=== PATIENT | female | born 1960 | race Caucasian/White ===

== ENCOUNTER 2021-04-03 18:00 | Inpatient (IN) | payer OTHER ==
[~2021-04-03] VITALS: Ht 167.6 cm; Wt 108.0 kg
[2021-04-03] MEDS ORDERED: SODIUM CHLORIDE 0.9% 1,000 ML IVB ONE (18:30)
[2021-04-03] MEDS ORDERED: ONDANSETRON HCL 4 MG/2 ML VIAL IV ONE (18:30)
[2021-04-03] MEDS ORDERED: MORPHINE SULFATE 4 MG/ML SYR/VIAL IV ONE (18:30)
[2021-04-03] MEDS ORDERED: KETOROLAC TROMETH 60MG/2ML VIAL IM ONE (18:30)
[2021-04-03 19:08] LABS: Basophils # (auto) 0 10 ^3/uL (0-0.2); Basophils % (auto) 0.5 % (0.0-2.0); Eosinophils # (auto) 0.2 10 ^3/uL (0-0.8); Eosinophils % (auto) 2.5 % (0.0-7.0); Hematocrit 40.5 % (36.0-46.0); Lymphocytes # (auto) 1.9 10 ^3/uL (0.4-5.4); Lymphocytes % (auto) 27.8 % (10.0-50.0); Mean Corpuscular Hgb Conc. 34.7 g/dL (32.0-36.0); Mean Corpuscular Volume 89.4 fL (80.0-100.0); Monocytes # (auto) 0.4 10 ^3/uL (0-1.3); Monocytes % (auto) 5.3 % (0.0-12.0); Neutrophils # (auto) 4.3 10 ^3/uL (1.6-8.6); Neutrophils % (auto) 63.9 % (37.0-80.0); Nucleated Red Blood Cells % 0.2 %; Platelet Count (auto) 303 10^3/uL (140-450); Red Blood Cells 4.53 10^6/uL (4.0-5.20); Red Cell Distribution Width 13.8 % (11.8-14.3); White Blood Cell 6.7 10^3/uL (4.4-10.8)
[2021-04-03 19:15] LABS: Urine Bacteria NONE SEEN /hpf (None Seen); Urine Blood 3+ /uL (Negative); Urine Mucus FEW (None Seen); Urine Specific Gravity 1.018 (1.001-1.035); Urine WBC 34 /hpf (0 - 5)
[2021-04-03 19:26] LABS: Potassium 4.4 mmol/L (3.5-5.1)
[2021-04-03 19:32] LABS: Albumin 3.7 g/dL (3.4-5.0); BUN/Creatinine Ratio 21.1; Bilirubin, Total 0.5 mg/dL (0.2-1.0); Total Protein 7.1 g/dL (6.4-8.2)
[2021-04-03] MEDS ORDERED: DEXTROSE (50%) 50ML SYRG IV PRN (21:00)
[2021-04-03] MEDS ORDERED: TEMAZEPAM 15 MG CAP PO PRN (21:00)
[2021-04-03] MEDS ORDERED: ONDANSETRON HCL 4 MG/2 ML VIAL IV PRN (21:00)
[2021-04-03] MEDS ORDERED: cefTRIAXone 1GM/50ML D5W 50 ML IV ONE (21:00)
[2021-04-03] MEDS ORDERED: MORPHINE SULF INJ 2 MG/ML SYRINGE 1ML IV PRN (21:00)
[2021-04-03] MEDS ORDERED: ACETAMINOPHEN 325 MG TAB PO PRN (21:00)
[2021-04-03] MEDS ORDERED: HYDROcodone-ACET 5/325MG TAB PO PRN (21:00)
[2021-04-03] MEDS: InsuLIN REG 1unit/0.01ml Soln (100units/ml) SC SCH (21:56)
[2021-04-03] MEDS: ACCU-CHEK COMFORT CURVE STRIP VI SCH (21:56)
[2021-04-03] MEDS: FAMOTIDINE 20 MG TAB PO SCH (22:01)
[2021-04-04 01:16] VITALS: BP 121/73
[2021-04-04] MEDS ORDERED: ASPI1TAB19 PO (01:42)
[2021-04-04] MEDS ORDERED: LEV100T PO (01:42)
[2021-04-04] MEDS ORDERED: PRAV20TA3 PO (01:42)
[2021-04-04] MEDS ORDERED: METF-370 PO (01:42)
[2021-04-04] MEDS ORDERED: PIO30T PO (01:42)
[2021-04-04 05:00] VITALS: BP 110/65
[2021-04-04] MEDS: InsuLIN REG 1unit/0.01ml Soln (100units/ml) SC SCH ×3 (06:07→16:46)
[2021-04-04] MEDS: ACCU-CHEK COMFORT CURVE STRIP VI SCH ×3 (06:08→16:46)
[2021-04-04 06:20] LABS: Basophils # (auto) 0 10 ^3/uL (0-0.2); Basophils % (auto) 0.4 % (0.0-2.0); Eosinophils # (auto) 0.1 10 ^3/uL (0-0.8); Eosinophils % (auto) 2.5 % (0.0-7.0); Hematocrit 38.7 % (36.0-46.0); Lymphocytes % (auto) 32.9 % (10.0-50.0); Mean Corpuscular Hemoglobin 30.2 pg (28.0-32.0); Mean Corpuscular Hgb Conc. 33.6 g/dL (32.0-36.0); Monocytes # (auto) 0.4 10 ^3/uL (0-1.3); Monocytes % (auto) 6.5 % (0.0-12.0); Neutrophils # (auto) 3.4 10 ^3/uL (1.6-8.6); Neutrophils % (auto) 57.7 % (37.0-80.0); Platelet Count (auto) 286 10^3/uL (140-450); Red Cell Distribution Width 13.7 % (11.8-14.3); White Blood Cell 5.9 10^3/uL (4.4-10.8)
[2021-04-04 06:38] LABS: BUN/Creatinine Ratio 22.4; Calcium 8.7 mg/dL (8.5-10.1); Potassium 3.9 mmol/L (3.5-5.1)
[2021-04-04] MEDS ORDERED: LEVOTHYROXINE SODIUM 100 MCG TAB PO SCH (07:00)
[2021-04-04 09:00] VITALS: BP 108/62
[2021-04-04] MEDS ORDERED: PNEUMOCOCCAL VACC POLYS 25 MCG/0.5 ML VIAL IM ONE (09:00)
[2021-04-04] MEDS ORDERED: cefTRIAXone 1GM/50ML D5W 50 ML IV SCH (09:00)
[2021-04-04] MEDS: FAMOTIDINE 20 MG TAB PO SCH (09:36)
[2021-04-04 13:00] VITALS: BP 107/65
[2021-04-04] MEDS ORDERED: TAMSULOSIN HYDROCHLORIDE 0.4 MG CAP PO ONE (15:00)
[2021-04-04] MEDS ORDERED: SODIUM CHLORIDE 0.9% 1,000 ML IV SCH (15:00)
[2021-04-04] MEDS ORDERED: MANNITOL FTV 25% 12.5 GM/50 ML 50 ML IV ONE (15:00)
[2021-04-04] MEDS ORDERED: HYDR1TAB97 PO (15:11)
[2021-04-04] MEDS ORDERED: TAM04C PO (15:11)
[2021-04-04] MEDS ORDERED: LEVO500T31 PO (15:11)
[2021-04-04] MEDS ORDERED: IBUP400T23 PO (15:11)
[2021-04-04 17:00] VITALS: BP 120/69
[2021-04-04] MEDS ORDERED: TAMSULOSIN HYDROCHLORIDE 0.4 MG CAP PO SCH (18:00)
== END 2021-04-04 19:04 | disposition home or self-care (01) | DRG 690 ==
LOC: ER 18:03 → OVERFLOW 21:26 → EAST 23:34
PROVIDERS: ADMIT Nurse Practitioner; ATTEND Internal Medicine
DX: N13.6 Pyonephrosis (principal); E66.9 Obesity, unspecified; Z20.822 Contact with and (suspected) exposure to COVID-19; R31.9 Hematuria, unspecified; E11.9 Type 2 diabetes mellitus without complications; E03.9 Hypothyroidism, unspecified; Z68.38 Body mass index [BMI] 38.0-38.9, adult; Z90.49 Acquired absence of other specified parts of digestive tract; Z85.810 Personal history of malignant neoplasm of tongue; Z79.899 Other long term (current) drug therapy; Z79.82 Long term (current) use of aspirin; Z79.84 Long term (current) use of oral hypoglycemic drugs; Z82.49 Family history of ischemic heart disease and other diseases of the circulatory system; Z80.0 Family history of malignant neoplasm of digestive organs; Z80.8 Family history of malignant neoplasm of other organs or systems
CPT/HCPCS: 36415; 74176; 80048; 80053; 81001; 82360; 82962; 85025; 87426; 96365; 96372; G0378; J0696; J1815; J1885

== ENCOUNTER 2025-02-19 13:34 | Inpatient (IN) | payer OTHER ==
[~2025-02-19] VITALS: Ht 167.6 cm; Wt 99.0 kg
[~2025-02-19 13:34] MED LIST: ASPI1TAB19 PO; HYDR1TAB97 PO; IBUP1TAB4 PO; LEVO-849 PO; LEVO500T31 PO; METF-370 PO; PIO30T PO; PRAV20TA3 PO; TAMS-35 PO
[2025-02-19 14:11] LABS: Basophils # (auto) 0 10 ^3/uL (0-0.2); Basophils % (auto) 0.6 % (0.0-2.0); Eosinophils # (auto) 0.1 10 ^3/uL (0-0.8); Eosinophils % (auto) 1.8 % (0.0-7.0); Hematocrit 45.1 % (36.0-46.0); Hemoglobin 15.3 g/dL (12.2-16.2); Lymphocytes # (auto) 2.2 10 ^3/uL (0.4-5.4); Lymphocytes % (auto) 28.5 % (10.0-50.0); Mean Corpuscular Hemoglobin 28.9 pg (28.0-32.0); Mean Corpuscular Hgb Conc. 33.8 g/dL (32.0-36.0); Mean Corpuscular Volume 85.5 fL (80.0-100.0); Monocytes # (auto) 0.4 10 ^3/uL (0-1.3); Monocytes % (auto) 5.5 % (0.0-12.0); Neutrophils % (auto) 63.6 % (37.0-80.0); Nucleated Red Blood Cells % 0.1 %; Platelet Count (auto) 351 10^3/uL (140-450); Red Blood Cells 5.28 10^6/uL (4.0-5.20); Red Cell Distribution Width 13.9 % (11.8-14.3); White Blood Cell 7.9 10^3/uL (4.4-10.8)
--- NOTE | 2025-02-19 14:11 | ED.PDOC ---
General HPI Comments Vitals: temperature of 98.3F, respiratory rate of 18, SpO2 of 99%RA, pulse rate of 95, blood pressure of 144/91 Past medical history: kidney stones, DM, tongue cancer, hypothyroidism, HLD Past surgical history: tongue cancer removal procedure, cholecystectomy HPI: Poor Historian. 65-year-old female presents to emergency department for evaluation of left flank pain that started at 12:30 p.m. this afternoon. Patient has history of kidney stones. She passed a small stone she says two days ago. Patient states that her pain is very similar to her previous attacks of kidney stones. Patient has associated nausea and vomiting nonbilious nonbloody. Patient appears to be in moderate distress secondary to pain. REVIEW OF SYSTEMS: CONSTITUTIONAL: Denies acute: fever, diaphoresis, chills, HEAD: Denies acute: headache, photophobia Eyes: Denies acute: Double vision, vision loss, eye pain, eye discharge. EARS: Denies acute: tinnitus, hearing loss, ear discharge, ear pain, THROAT: Denies acute: sore throat, swelling, difficulty swallowing , pain with swallowing, change in voice. NECK: Denies acute: neck pain, neck swelling, stiff neck. HEART: Denies acute : chest pain, palpitations, LUNGS: Denies acute: SOB, wheezing, cough, hemoptysis ABDOMEN: Denies acute: abdominal pain, , diarrhea, melena , hematemesis, hematochezia SKIN: Denies acute: rash, redness, lesions, itchiness. EXTREMITIES: Denies acute: calf pain, numbness, tingling, weakness, denies pain in extremity. Denies acute: Low back pain. Neuro: Denies acute: focal neurological deficit, motor or sensory focal neurological deficit, tremors, seizure like activity, confusion, dizziness, change in mental status, loss of bowel or bladder function, cauda equina like symptoms. : Denies acute: dysuria, hematuria, increase in urinary frequency. PSYCH: Denies acute: hallucination, suicidal ideation, homicidal ideation. FEMALE: Denies acute: abnormal vaginal bleeding, foul odor, unusual discharge. PHYSICAL EXAM: General: ---[id number]-----acute distress, awake and alert. Head: normocephalic, atraumatic. Neck: supple, trachea is midline, no swelling. Throat: Normal phonation. Eyes:, no erythema, no purulent discharge, no proptosis, no icterus. Heart: regular rate, regular rhythm, no significant murmur appreciated. Lungs: no apparent respiratory distress, Able to speak in full sentences. No wheezing, no rhonchi, no crackles. No stridors Clear to auscultation bilaterally. Abdomen: non tender to palpation, non distended, soft, no guarding, no rebound, + bowel sounds. Neuro: Awake, Alert, oriented to name, self, situation, follows commands GCS=15. Speech is normal. Skin: no petechia, no purpura, no cyanosis, non-pale, not jaundice. Lower extremities: --to raise bilateral - Pitting edema no deformity, no focal swelling, no calf TTP. Makes eye contact. moves all four extremities. Face: no apparent facial droop. Left CVA tenderness to percussion. Ambulating in the ED independently. ED COURSE: Chief Complaint: Flank Pain Time Seen by MD: 14:00 Reviewed notes: Nurses Notes Allergies: Coded Allergies: NO KNOWN ALLERGIES (Unverified , 04/03/21) Home Meds Active Scripts Hydrocodone-Acetaminophen (Hydrocodone/Acetaminophen 5-325 mg) 1 Tab Tab, 1 TAB PO Q6HP PRN MDD pain 7-10, #20 TAB Prov:JERI TAYLOR MD 04/04/21 Ibuprofen Micronized (Ibuprofen) 400 Mg Tab, 400 MG PO Q6HP PRN MDD pain 1-6, #20 MG Prov:JERI TAYLOR MD 04/04/21 Tamsulosin Hcl (Flomax) 0.4 Mg Cap, 0.4 MG PO DAILY, #7 MG Prov:JERI TAYLOR MD 04/04/21 Levofloxacin (Levaquin) 500 Mg Tab, 500 MG PO DAILY, #7 MG Prov:JERI TAYLOR MD 04/04/21 Reported Medications Pravastatin Sodium (PRAVACHOL TABLET) 20 Mg Tb, 10 MG PO HS, #30 TAB 5 Refills 04/04/21 Aspirin (Aspirin) 81 Mg Tab, 81 MG PO DAILY, TAB 04/04/21 Pioglitazone Hydrochloride (ACTOS TABLET) 30 Mg Tb, 1 TAB PO DAILY, #30 TAB 5 Refills 04/04/21 Levothyroxine Sodium (SYNTHROID TABLET) 100 Mcg Tb, 1 TAB PO DAILY, #30 TAB 5 Refills 04/04/21 Metformin Hydrochloride (Metformin Hcl) 500 Mg Tab, 1000 MG PO BID for 30 Days, MG 04/04/21 Information Source: Patient Past Medical History PAST MEDICAL HISTORY: Cancer, DM, Kidney Stones, Thyroid Surgical History: Cholecystectomy 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 Was a procedure done?: No Differential Diagnosis Kidney stone (Female): Other (Flank Pain;DDX include Nephrolethiasis, obstructive uropathy, kidney cancer, renal infarct, intraabdominal neoplasm, lower lobe pneumonia, retroperitoneal hemorrhage, pancreatitis, aneurysm, dissection, musculoskeletal, rib contusion/trauma, hematoma, PYLONEPHRITIS, muscle strain, spinal disease. IN A FEMALE) X-Ray, Labs, Meds, VS Vital Signs Date Time Temp Pulse Resp B/P (MAP) Pulse Ox O2 Delivery O2 Flow Rate FiO2 02/19/25 15:58 154/84 02/19/25 15:27 74 20 96 Room Air* 0 21 02/19/25 15:24 81 18 97 Room Air 02/19/25 15:24 97.4 81 18 154/84 (107) 97 97.4 02/19/25 13:42 98.3 95 18 144/91 (108) 99 98.3 Lab Test 02/19/25 13:54 02/19/25 13:53 Range/Units White Blood Count 7.9 4.4-10.8 10^3/uL Red Blood Count 5.28 H 4.0-5.20 10^6/uL Hemoglobin 15.3 12.2-16.2 g/dL Hematocrit 45.1 36.0-46.0 % Mean Corpuscular Volume 85.5 80.0-100.0 fL Mean Corpuscular Hemoglobin 28.9 28.0-32.0 pg Mean Corpuscular Hemoglobin Concent 33.8 32.0-36.0 g/dL Red Cell Distribution Width 13.9 11.8-14.3 % Platelet Count 351 140-450 10^3/uL Mean Platelet Volume 8.3 6.9-10.8 fL Neutrophils (%) (Auto) 63.6 37.0-80.0 % Lymphocytes (%) (Auto) 28.5 10.0-50.0 % Monocytes (%) (Auto) 5.5 0.0-12.0 % Eosinophils (%) (Auto) 1.8 0.0-7.0 % Basophils (%) (Auto) 0.6 0.0-2.0 % Neutrophils # (Auto) 5.0 1.6-8.6 10 ^3/uL Lymphocytes # (Auto) 2.2 0.4-5.4 10 ^3/uL Monocytes # (Auto) 0.4 0-1.3 10 ^3/uL Eosinophils # (Auto) 0.1 0-0.8 10 ^3/uL Basophils # (Auto) 0 0-0.2 10 ^3/uL Nucleated Red Blood Cells 0.1 % Sodium Level 141 136-145 mmol/L Potassium Level 4.2 3.5-5.1 mmol/L Chloride Level 104 98-107 mmol/L Carbon Dioxide Level 26 20-31 mmol/L Anion Gap 11 5-15 Blood Urea Nitrogen 17 9-23 mg/dL Creatinine 1.16 H 0.550-1.02 mg/dL Glomerular Filtration Rate Calc 52 >90 mL/min BUN/Creatinine Ratio 14.7 10.0-20.0 Serum Glucose 166 H 74-106 mg/dL Lactic Acid Level 1.5 0.4-2.0 mmol/L Calcium Level 10.1 8.7-10.4 mg/dL Total Bilirubin 1.1 H 0.2-1.0 mg/dL Aspartate Amino Transferase (AST) 11 L 13-40 U/L Alanine Aminotransferase (ALT) 15 7-40 U/L Alkaline Phosphatase 77 46-116 U/L Troponin I High Sensitivity < 3 L </=34 ng/L Total Protein 7.1 5.7-8.2 g/dL Albumin 4.8 3.2-4.8 g/dL Lipase 29 12-53 U/L Urine Color Light-orange Yellow Urine Clarity Ex.turbid Clear Urine pH 5.0 5.0-9.0 Urine Specific [place] 1.022 1.001-1.035 Urine Protein 2+ H Negative Urine Ketones Negative Negative Urine Blood 3+ H Negative /uL Urine Nitrite Negative Negative Urine Bilirubin Negative Negative Urine Urobilinogen Normal Negative mg/dL Urine Leukocyte Esterase Trace Negative /uL Urine RBC 1432 0 - 4 /hpf Urine WBC Clumps Present None Seen /hpf Urine Microscopic WBC 133 H 0-5 /HPF Urine Squamous Epithelial Cells Few <5 /hpf Urine Amorphous Crystals Few None Seen /hpf Urine Bacteria Few H None Seen /hpf Urine Mucus Few None Seen Urine Glucose Trace Normal mg/dL Current Medications Medications (Trade) Dose Ordered Sig/Jabier Route Start Time Stop Time Status Last Admin Tamsulosin HCl (Flomax) 0.4 mg ONCE ONCE PO 02/19/25 13:45 02/19/25 13:46 DC 02/19/25 15:43 Sodium Chloride 1,000 ml @ 1,000 mls/hr Q1H ONCE IV 02/19/25 13:45 02/19/25 14:44 DC 02/19/25 15:43 Ondansetron HCl (Zofran) 8 mg ONCE ONCE IV 02/19/25 13:45 02/19/25 13:46 DC 02/19/25 15:59 Fentanyl Citrate 100 mcg ONCE ONCE IV 02/19/25 14:00 02/19/25 14:01 DC 02/19/25 15:58 Ceftriaxone Sodium 50 ml @ 100 mls/hr ONCE ONCE IV 02/19/25 14:00 02/19/25 14:29 DC 02/19/25 15:57 Ondansetron HCl (Zofran) 8 mg ONCE ONCE IV 02/19/25 18:00 02/19/25 18:01 DC 02/19/25 18:19 [place] [id number] Ph: [phone] DIAGNOSTIC IMAGING Diagnostic Imaging Report : [id number] Signed PATIENT: VALENTINA FUNES ACCT: [id number] UNIT: [id number] : 1960 LOC: ER ROOM / BED: / AGE / SEX: 65 / F ADM STATUS: REG ER SERVICE 1525 ORDERING PHYSICIAN: HAZEL PATEL DO PROCEDURE(s): ABPL - CT AB PEL WO CON-NO ORAL OR IV REASON: L flank pain Kidney stones ORDER NUMBER(s): [id number], ACCESSION NUMBER(s): [id number] CLINICAL HISTORY: L flank pain Kidney stones TECHNIQUE: CT of the abdomen and pelvis was performed without intravenous contrast. This exam was performed according to our departmental dose optimization program. Up-to-date CT equipment and radiation dose reduction techniques are utilized as appropriate. CTDI: 26.62+ 0.14 DLP: 1477.36 WID: COMPARISON: CT abdomen pelvis from 04/03/2021 FINDINGS: Lower Thorax: Lung bases are clear. Normal-sized heart with trace pericardial fluid. Liver and Biliary system: Prior cholecystectomy, otherwise unremarkable. Spleen: Unremarkable. Adrenal Glands and Kidneys: Normal adrenal glands. Obstructing 9.6 x 5.3 mm calculus in the proximal to mid left ureter causing mild left hydroureteronephrosis. There are additional nonobstructing bilateral renal calculi. Pancreas and Retroperitoneum: Atrophic pancreas. No retroperitoneal lymphadenopathy. Aorta and Major Vessels: Aortoiliac vessels are normal caliber containing mild calcified atherosclerotic plaque. Bowel, Mesentery and Peritoneal space: Normal caliber small and large bowel. Normal appendix. Mild distal colonic diverticulosis. There is no free air or fluid collection. Pelvis: Unremarkable. Abdominal wall and Osseous Structures: Multilevel lower thoracic and lumbar spondylosis, mild. No destructive osseous lesion. Small fat containing umbilical hernia. IMPRESSION: 1. Obstructing 9.6 x 5.3 mm calculus in the proximal to mid left ureter causing mild left hydroureteronephrosis. 2. Additional nonobstructing bilateral renal calculi. 3. Mild distal colonic diverticulosis. ATED BY: ANAMIKA MONTAGUE MD DICTATED DATE/TIME: 02/19/251626 SIGNED BY: ANAMIKA MONTAGUE MD SIGNED DATE/TIME: 02/19/251626 CC: Time of 1ST Reevaluation: 14:00 Reevaluation 1ST: Unchanged Patient Education/Counseling: Diagnosis, Treatment Family Education/Counseling: No Family Present Comments Patient presented with the above HPI.-flank pain-----workup was initiated. patient was found with the above mentioned diagnosis. the following medications were ordered: please refer to order lists of meds and tests obtained by myself Dr. Patel. Patient ED course and VS have been stabilized. Patient has been reassessed in the ED and remained in a stable condition. Pertinent incidental findings were discussed with the patient and/or family. Patient/family voices understanding and is agreeable with plan. Patient has been observed in the ED adequate length of time to insure improvement/stability. Escalation of care considered: Consideration of escalation to observation or admission Patient was ADMITTED to the medicine team for further evaluation and treatment of their presentation. All the reports of any imaging studies that were ordered by myself were reviewed by myself. Departure 1 Departure Time of Disposition: 17:02 Impression: Primary Impression: Hydronephrosis with renal and ureteral calculous obstruction Additional Impression: UTI (urinary tract infection) Disposition: 09 ADMITTED INPATIENT Admit to: Tele Condition: Guarded Discharged With: Self Critical Care Note Critical Care Time?: Yes (35 min-critical care time only) I personally scribed for HAZEL PATEL DO ([email or web address]) on 02/19/25 at 14:11. Electronically submitted by Seth Roman ([email or web address]). I personally scribed for HAZEL PATEL DO ([email or web address]) on 02/19/25 at 20:44. Electronically submitted by Seth Roman [email or web address]). HAZEL PATEL DO Feb 19, 2025 14:11
[2025-02-19 14:27] LABS: Alanine Aminotransferase 15 U/L (7-40); Alkaline Phosphatase 77 U/L (46-116); Anion Gap 11 (5-15); BUN/Creatinine Ratio 14.7 (10.0-20.0); Bilirubin, Total 1.1 mg/dL (0.2-1.0); Blood Urea Nitrogen 17 mg/dL (9-23); Calcium 10.1 mg/dL (8.7-10.4); Carbon Dioxide 26 mmol/L (20-31); Chloride 104 mmol/L (98-107); Lipase 29 U/L (12-53); Potassium 4.2 mmol/L (3.5-5.1); Sodium 141 mmol/L (136-145); Total Protein 7.1 g/dL (5.7-8.2)
[2025-02-19 14:28] LABS: Albumin 4.8 g/dL (3.2-4.8); Aspartate Aminotransferase 11 U/L (13-40); Glucose 166 mg/dL (74-106)
[2025-02-19 15:08] LABS: Urine Amorphous Crystal FEW /hpf (None Seen); Urine Bacteria FEW /hpf (None Seen); Urine Blood 3+ /uL (Negative); Urine Clarity Ex.Turbid (Clear); Urine Color Light-Orange (Yellow); Urine Mucus FEW (None Seen); Urine Protein, UAD 2+ (Negative); Urine Specific Gravity 1.022 (1.001-1.035); Urine Squamous Epithelial Cell FEW /hpf (<5); Urine Urobilinogen Normal (Negative); Urine WBC 133 /HPF (0-5); Urine WBC Clumps PRESENT /hpf (None Seen)
[2025-02-19 15:27] VITALS: PULSE 74; RESP 20; O2SAT 96
[2025-02-19] MEDS: TAMSULOSIN HYDROCHLORIDE 0.4 MG CAP PO ONE (15:43)
[2025-02-19] MEDS: SODIUM CHLORIDE 0.9% 1,000 ML IV ONE (15:43)
[2025-02-19] MEDS: cefTRIAXone 1GM/50ML D5W 50 ML IV ONE (15:57)
[2025-02-19] MEDS: fentaNYL CITRATE 100 MCG/2 ML VL IV ONE (15:58)
[2025-02-19] MEDS: ONDANSETRON HCL 4 MG/2 ML VIAL IV ONE ×2 (15:59→18:19)
--- NOTE | 2025-02-19 16:30 | DVH ---
CLINICAL HISTORY: L flank pain Kidney stones TECHNIQUE: CT of the abdomen and pelvis was performed without intravenous contrast. This exam was per formed according to our departmental dose optimization program. Up-to-date CT equipment and radiation dose reduction techniques are utilized as appropriate. CTDI: 26.62+ 0.14 DLP: 1477.36 WID: COMPARISON: CT abdomen pelvis from 04/03/2021 FINDINGS: Lower Thorax: Lung bases are clear. Normal-sized heart with trace pericardial fluid. Liver and Biliary system: Prior cholecystectomy, otherwise unremarkable. Spleen: Unremarkable. Adrenal Glands and Kidneys: Normal adrenal glands. Obstructing 9.6 x 5.3 mm calculus in the proximal to mid left ureter causing mild left hydroureteronephrosis. There are additional nonobstructing bilat eral renal calculi. Pancreas and Retroperitoneum: Atrophic pancreas. No retroperitoneal lymphadenopathy. Aorta and Major Vessels: Aortoiliac vessels are normal caliber containing mild calcified atherosclero tic plaque. Bowel, Mesentery and Peritoneal space: Normal caliber small and large bowel. Normal appendix. Mild d istal colonic diverticulosis. There is no free air or fluid collection. Pelvis: Unremarkable. Abdominal wall and Osseous Structures: Multilevel lower thoracic and lumbar spondylosis, mild. No alberto tructive osseous lesion. Small fat containing umbilical hernia. IMPRESSION: 1. Obstructing 9.6 x 5.3 mm calculus in the proximal to mid left ureter causing mild left hydroureter onephrosis. 2. Additional nonobstructing bilateral renal calculi. 3. Mild distal colonic diverticulosis.
[2025-02-19] MEDS ORDERED: DOCUSATE SOD 100 MG CAP PO PRN (18:45)
[2025-02-19] MEDS ORDERED: ACETAMINOPHEN 325 MG TAB PO PRN (18:45)
[2025-02-19] MEDS ORDERED: HYDROcodone-ACET 5/325MG TAB PO PRN (18:45)
--- NOTE | 2025-02-19 18:45 | DVHHP2 ---
Admitting Diagnosis: flank pain History of Present Illness 65-year-old female presents to emergency department for evaluation of left flank pain that started at 12:30 p.m. this afternoon. Patient has history of kidney stones. She passed a small stone she says two days ago. Patient states that her pain is very similar to her previous attacks of kidney stones. Patient has associated nausea and vomiting nonbilious nonbloody. Patient appears to be in moderate distress secondary to pain. REVIEW OF SYSTEMS: CONSTITUTIONAL: Denies acute: fever, diaphoresis, chills, HEAD: Denies acute: headache, photophobia Eyes: Denies acute: Double vision, vision loss, eye pain, eye discharge. EARS: Denies acute: tinnitus, hearing loss, ear discharge, ear pain, THROAT: Denies acute: sore throat, swelling, difficulty swallowing , pain with swall owing, change in voice. NECK: Denies acute: neck pain, neck swelling, stiff neck. HEART: Denies acute : chest pain, palpitations, LUNGS: Denies acute: SOB, wheezing, cough, hemoptysis ABDOMEN: Denies acute: abdominal pain, , diarrhea, melena , hematemesis, hematochezia SKIN: Denies acute: rash, redness, lesions, itchiness. EXTREMITIES: Denies acute: calf pain, numbness, tingling, weakness, denies pain in extremity. Denies acute: Low back pain. Neuro: Denies acute: focal neurological deficit, motor or sensory focal neurological deficit, tremors, seizure like activity, confusion, dizziness, change in mental status, loss of bowel or bladder function, cauda equina like symptoms. : Denies acute: dysuria, hematuria, increase in urinary frequency. PSYCH: Denies acute: hallucination, suicidal ideation, homicidal ideation. FEMALE: Denies acute: abnormal vaginal bleeding, foul odor, unusual discharge. PAST MEDICAL HISTORY: Cancer, DM, Kidney Stones, Thyroid Surgical History: Cholecystectomy INCIDENT RESPONSE LEAD History: No Pertinent INCIDENT RESPONSE LEAD History Family History Family History: Family hx of heart bharti Social History Smoker: Non-Smoker Alcohol: Denies ETOH Use Drugs: Denies Drug Use Patient Family History: Colon cancer G8 FATHER FH: heart attack G8 MOTHER FH: skin cancer G8 MOTHER G8 FATHER Allergies: Coded Allergies: NO KNOWN ALLERGIES (Unverified , 04/03/21) Home Meds Active Scripts Hydrocodone-Acetaminophen (Hydrocodone/Acetaminophen 5-325 mg) 1 Tab Tab, 1 TAB PO Q6HP PRN MDD pain 7-10, #20 TAB Prov:JERI TAYLOR MD 04/04/21 Ibuprofen Micronized (Ibuprofen) 400 Mg Tab, 400 MG PO Q6HP PRN MDD pain 1-6, #20 MG Prov:JERI TAYLOR MD 04/04/21 Tamsulosin Hcl (Flomax) 0.4 Mg Cap, 0.4 MG PO DAILY, #7 MG Prov:JERI TAYLOR MD 04/04/21 Levofloxacin (Levaquin) 500 Mg Tab, 500 MG PO DAILY, #7 MG Prov:JERI TAYLOR MD 04/04/21 Reported Medications Pravastatin Sodium (PRAVACHOL TABLET) 20 Mg Tb, 10 MG PO HS, #30 TAB 5 Refills 04/04/21 Aspirin (Aspirin) 81 Mg Tab, 81 MG PO DAILY, TAB 04/04/21 Pioglitazone Hydrochloride (ACTOS TABLET) 30 Mg Tb, 1 TAB PO DAILY, #30 TAB 5 Refills 04/04/21 Levothyroxine Sodium (SYNTHROID TABLET) 100 Mcg Tb, 1 TAB PO DAILY, #30 TAB 5 Refills 04/04/21 Metformin Hydrochloride (Metformin Hcl) 500 Mg Tab, 1000 MG PO BID for 30 Days, MG 04/04/21 Current Medications Current Medications Medications (Trade) Dose Ordered Sig/Jabier Route PRN Reason Start Time Stop Time Status Last Admin Sodium Chloride (Saline Lock Ns) 10 ml Q8HR IV 02/19/25 22:00 UNV Docusate Sodium (Colace Capsule) 100 mg BIDPRN PRN PO FOR CONSTIPATION 02/19/25 18:45 UNV Acetaminophen (Tylenol Tablet) 650 mg Q6HP PRN PO PAIN SCALE 1-3 OR TEMP>100.4 02/19/25 18:45 UNV Acetaminophen/ Hydrocodone Bitart ([place] 5/325MG Tab) 1 tab Q4HP PRN PO MODERATE PAIN (4-6 PAIN SCALE) 02/19/25 18:45 UNV Hydromorphone HCl (Dilaudid Injection) 0.5 mg Q4HP PRN IV SEVERE PAIN (7-10 PAIN SCALE) 02/19/25 18:45 UNV Aspirin (Ecotrin Enteric Coated Tablet) 81 mg DAILY PO 02/20/25 10:00 UNV Levothyroxine Sodium (Synthroid Tablet) 100 mcg DAILY PO 02/20/25 10:00 UNV Pravastatin Sodium (Pravachol Tablet) 10 mg HS PO 02/19/25 22:00 UNV Tamsulosin HCl (Flomax) 0.4 mg DAILY PO 02/20/25 10:00 UNV Vital Signs Vital Signs Date Time Temp Pulse Resp B/P (MAP) Pulse Ox O2 Delivery O2 Flow Rate FiO2 02/19/25 15:58 154/84 02/19/25 15:27 74 20 96 Room Air* 0 21 02/19/25 15:24 97.4 97.4 Physical Exam Generally-65 years old woman, well nourished well developed. Moderate distress HEENT-atraumatic normocephalic Heart-regular rate and rhythm Lungs clear to auscultate bilaterally Abdomen soft nontender nondistended Skeletal-no edema cyanosis Neuro-AO x3 no focal deficit Results Labs Test 02/19/25 13:54 02/19/25 13:53 Range/Units White Blood Count 7.9 4.4-10.8 10^3/uL Red Blood Count 5.28 H 4.0-5.20 10^6/uL Hemoglobin 15.3 12.2-16.2 g/dL Hematocrit 45.1 36.0-46.0 % Mean Corpuscular Volume 85.5 80.0-100.0 fL Mean Corpuscular Hemoglobin 28.9 28.0-32.0 pg Mean Corpuscular Hemoglobin Concent 33.8 32.0-36.0 g/dL Red Cell Distribution Width 13.9 11.8-14.3 % Platelet Count 351 140-450 10^3/uL Mean Platelet Volume 8.3 6.9-10.8 fL Neutrophils (%) (Auto) 63.6 37.0-80.0 % Lymphocytes (%) (Auto) 28.5 10.0-50.0 % Monocytes (%) (Auto) 5.5 0.0-12.0 % Eosinophils (%) (Auto) 1.8 0.0-7.0 % Basophils (%) (Auto) 0.6 0.0-2.0 % Neutrophils # (Auto) 5.0 1.6-8.6 10 ^3/uL Lymphocytes # (Auto) 2.2 0.4-5.4 10 ^3/uL Monocytes # (Auto) 0.4 0-1.3 10 ^3/uL Eosinophils # (Auto) 0.1 0-0.8 10 ^3/uL Basophils # (Auto) 0 0-0.2 10 ^3/uL Nucleated Red Blood Cells 0.1 % Sodium Level 141 136-145 mmol/L Potassium Level 4.2 3.5-5.1 mmol/L Chloride Level 104 98-107 mmol/L Carbon Dioxide Level 26 20-31 mmol/L Anion Gap 11 5-15 Blood Urea Nitrogen 17 9-23 mg/dL Creatinine 1.16 H 0.550-1.02 mg/dL Glomerular Filtration Rate Calc 52 >90 mL/min BUN/Creatinine Ratio 14.7 10.0-20.0 Serum Glucose 166 H 74-106 mg/dL Lactic Acid Level 1.5 0.4-2.0 mmol/L Calcium Level 10.1 8.7-10.4 mg/dL Total Bilirubin 1.1 H 0.2-1.0 mg/dL Aspartate Amino Transferase (AST) 11 L 13-40 U/L Alanine Aminotransferase (ALT) 15 7-40 U/L Alkaline Phosphatase 77 46-116 U/L Troponin I High Sensitivity < 3 L </=34 ng/L Total Protein 7.1 5.7-8.2 g/dL Albumin 4.8 3.2-4.8 g/dL Lipase 29 12-53 U/L Urine Color Light-orange Yellow Urine Clarity Ex.turbid Clear Urine pH 5.0 5.0-9.0 Urine Specific [place] 1.022 1.001-1.035 Urine Protein 2+ H Negative Urine Ketones Negative Negative Urine Blood 3+ H Negative /uL Urine Nitrite Negative Negative Urine Bilirubin Negative Negative Urine Urobilinogen Normal Negative mg/dL Urine Leukocyte Esterase Trace Negative /uL Urine RBC 1432 0 - 4 /hpf Urine WBC Clumps Present None Seen /hpf Urine Microscopic WBC 133 H 0-5 /HPF Urine Squamous Epithelial Cells Few <5 /hpf Urine Amorphous Crystals Few None Seen /hpf Urine Bacteria Few H None Seen /hpf Urine Mucus Few None Seen Urine Glucose Trace Normal mg/dL Primary Diagnosis Left renal obstructive calculus Left hydronephrosis Plan CT scan shows left obstructive renal calculus 9 mm, no hydronephrosis Urology consult NPO midnight Regular diet for now Tamsulosin IV fluids Resume home meds Check INR Full code SCD for DVT prophylaxis Plan discussed with: Patient Date of Service: Feb 19, 2025 Billing Provider: MEMO RUBI MD Common Visit Codes: [id number] INP/OBS CARE (HIGH) MEMO RUBI MD Feb 19, 2025 18:45
[2025-02-19] MEDS ORDERED: DEXTROSE (50%) 50ML SYRG IV PRN (19:00)
--- NOTE | 2025-02-19 19:33 | DVH ---
EXAM: US KIDNEY INDICATION: assess left renal hydronephrosis TECHNIQUE: Multiple real-time sonographic images of the kidneys and bladder were obtained. COMPARISON: None Findings: Right kidney measures 8.0 cm with normal contours, echotexture, and cortical thickness. Nephrolithias is. No evidence of hydronephrosis, cystic or solid lesions. Left kidney measures 10.2 cm with normal contours, echotexture, and cortical thickness. Nephrolithias is. No evidence of hydronephrosis, cystic or solid lesions. Urinary bladder is unremarkable without evidence of abnormal wall thickening, mass, or calculi. Prevo id volume 108 mL. Postvoid volume was not obtained. Impression: 1. Unremarkable sonographic study of the urinary bladder. 2. Bilateral nephrolithiasis. 3. No hydronephrosis.
[2025-02-19 20:00] VITALS: PULSE 67; RESP 12; O2SAT 96
[2025-02-19 20:09] LABS: INR 1.13 (0.9-1.15); Prothrombin Time 11.8 sec (9.3-11.8)
[2025-02-19] MEDS: HYDROmorphone HCL 2 MG/ML VL/or syr IV PRN (20:34)
[2025-02-19] MEDS: LACTATED RINGER'S 1,000 ML IV ONE (20:55)
[2025-02-19 21:40] VITALS: BP 119/70; PULSE 68; RESP 18; TEMP 98; O2SAT 97
[2025-02-19] MEDS: SODIUM CHLOR 0.9% PF (SALINE LOCK) 10ML VIAL/SYR IV SCH (22:22)
[2025-02-19] MEDS: PRAVASTATIN SODIUM 20 MG TAB PO SCH (22:22)
[2025-02-19 22:28] VITALS: BP 130/61; PULSE 73; RESP 16; TEMP 97.8; O2SAT 99
[2025-02-19] MEDS: ACCU-CHEK COMFORT CURVE STRIP VI SCH (22:38)
[2025-02-19] MEDS: InsuLIN REG 1unit/0.01ml Soln (100units/ml) SC SCH (22:39)
[2025-02-20] VITALS (7 sets, daily range): BP systolic 100–121; BP diastolic 51–64; PULSE 65–79; RESP 16–20; TEMP 97–98; O2SAT 94–100
[2025-02-20] MEDS: LEVOTHYROXINE SODIUM 100 MCG TAB PO SCH (05:49)
[2025-02-20 07:30] LABS: Basophils # (auto) 0 10 ^3/uL (0-0.2); Basophils % (auto) 0.4 % (0.0-2.0); Eosinophils # (auto) 0.1 10 ^3/uL (0-0.8); Eosinophils % (auto) 1.3 % (0.0-7.0); Hemoglobin 13.4 g/dL (12.2-16.2); Lymphocytes % (auto) 26.8 % (10.0-50.0); Mean Corpuscular Hemoglobin 28.6 pg (28.0-32.0); Mean Corpuscular Hgb Conc. 33.6 g/dL (32.0-36.0); Mean Corpuscular Volume 85.3 fL (80.0-100.0); Monocytes # (auto) 0.4 10 ^3/uL (0-1.3); Monocytes % (auto) 5.7 % (0.0-12.0); Neutrophils # (auto) 4.9 10 ^3/uL (1.6-8.6); Neutrophils % (auto) 65.8 % (37.0-80.0); Platelet Count (auto) 295 10^3/uL (140-450); Red Cell Distribution Width 13.8 % (11.8-14.3); White Blood Cell 7.5 10^3/uL (4.4-10.8)
[2025-02-20 07:57] LABS: Alanine Aminotransferase 10 U/L (7-40); Albumin 4.1 g/dL (3.2-4.8); Alkaline Phosphatase 68 U/L (46-116); Anion Gap 10 (5-15); Bilirubin, Total 0.9 mg/dL (0.2-1.0); Blood Urea Nitrogen 15 mg/dL (9-23); Calcium 9.2 mg/dL (8.7-10.4); Carbon Dioxide 26 mmol/L (20-31); Chloride 106 mmol/L (98-107); Potassium 3.7 mmol/L (3.5-5.1); Sodium 142 mmol/L (136-145); Total Protein 6.2 g/dL (5.7-8.2)
[2025-02-20 07:58] LABS: Glucose 111 mg/dL (74-106)
[2025-02-20 07:59] LABS: Aspartate Aminotransferase 11 U/L (13-40)
--- NOTE | 2025-02-20 08:37 | DVHINCON2 ---
Date of service: Feb 20, 2025 Referring Physician Hospitalist Reason for Consultation obstructive uropathy History of Present Illness History Source: Patient, RN Notes, MD Notes Exam Limitations: No limitations HPI 65-year-old female with PMH DMII presents to emergency department for evaluation of left flank pain. Patient has history of kidney stones X 15 YRS. She passed a small stone she says two days ago. She reports passing two more stones this morning. Her pain is somewhat relieved. Patient states that her pain is very similar to her previous attacks of kidney stones. Patient has associated nausea and vomiting nonbilious nonbloody. Patient appears to be in moderate distress secondary to pain. She is urinating "much better today". 2 prior stent placements unknonw if she also had lithotripsy. She doesnt recall. Home Meds Active Scripts Hydrocodone-Acetaminophen (Hydrocodone/Acetaminophen 5-325 mg) 1 Tab Tab, 1 TAB PO Q6HP PRN MDD pain 7-10, #20 TAB Prov:JERI TAYLOR MD 04/04/21 Ibuprofen Micronized (Ibuprofen) 400 Mg Tab, 400 MG PO Q6HP PRN MDD pain 1-6, #20 MG Prov:JERI TAYLOR MD 04/04/21 Tamsulosin Hcl (Flomax) 0.4 Mg Cap, 0.4 MG PO DAILY, #7 MG Prov:JERI TAYLOR MD 04/04/21 Levofloxacin (Levaquin) 500 Mg Tab, 500 MG PO DAILY, #7 MG Prov:JERI TAYLOR MD 04/04/21 Reported Medications Pravastatin Sodium (PRAVACHOL TABLET) 20 Mg Tb, 10 MG PO HS, #30 TAB 5 Refills 04/04/21 Aspirin (Aspirin) 81 Mg Tab, 81 MG PO DAILY, TAB 04/04/21 Pioglitazone Hydrochloride (ACTOS TABLET) 30 Mg Tb, 1 TAB PO DAILY, #30 TAB 5 Refills 04/04/21 Levothyroxine Sodium (SYNTHROID TABLET) 100 Mcg Tb, 1 TAB PO DAILY, #30 TAB 5 Refills 04/04/21 Metformin Hydrochloride (Metformin Hcl) 500 Mg Tab, 1000 MG PO BID for 30 Days, MG 04/04/21 Past Medical History Renal/: UTI Endocrine: IDDM Patient Family History: Colon cancer G8 FATHER FH: heart attack G8 MOTHER FH: skin cancer G8 MOTHER G8 FATHER Smoker: No Hx (Negative) Alocohol: None Drugs: None Domestic Violence: Neg Review of Systems Constitutional: Malaise Gastrointestinal: Nausea, Vomiting, Abdominal Pain Genitourinary: Pain H&P Exam Vital Signs Vital Signs Date Time Temp Pulse Resp B/P (MAP) Pulse Ox O2 Delivery O2 Flow Rate FiO2 02/20/25 05:00 97.0 77 19 102/52 (69) 94 97.0 02/19/25 22:10 Room Air* 0 21 General Appeara: Well developed, Well nourished, Normal Appearance, Obese Neuro/Mental St: Alert, Oriented Appearance: Appropriate appearance, Appropriate insight Eye contact/ Speech: Cooperative, Good eye contact, Normal speech Coordination/Gait: Normal finger->nose, Normal gait, Negative Romberg's sign Skin Exam: Normal inspection, Normal color, Warm/dry Labs/Xrays [place] [id number] Ph: [phone] DIAGNOSTIC IMAGING Diagnostic Imaging Report : [id number] Signed PATIENT: VALENTINA FUNES ACCT: [id number] UNIT: [id number] : 1960 LOC: ER ROOM / BED: / AGE / SEX: 65 / F ADM STATUS: REG ER SERVICE 1525 ORDERING PHYSICIAN: HAZEL PATEL DO PROCEDURE(s): ABPL - CT AB PEL WO CON-NO ORAL OR IV REASON: L flank pain Kidney stones ORDER NUMBER(s): [id number], ACCESSION NUMBER(s): [id number] CLINICAL HISTORY: L flank pain Kidney stones TECHNIQUE: CT of the abdomen and pelvis was performed without intravenous contrast. This exam was performed according to our departmental dose optimization program. Up-to-date CT equipment and radiation dose reduction techniques are utilized as appropriate. CTDI: 26.62+ 0.14 DLP: 1477.36 WID: COMPARISON: CT abdomen pelvis from 04/03/2021 FINDINGS: Lower Thorax: Lung bases are clear. Normal-sized heart with trace pericardial fluid. Liver and Biliary system: Prior cholecystectomy, otherwise unremarkable. Spleen: Unremarkable. Adrenal Glands and Kidneys: Normal adrenal glands. Obstructing 9.6 x 5.3 mm calculus in the proximal to mid left ureter causing mild left hydroureteronephrosis. There are additional nonobstructing bilateral renal calculi. Pancreas and Retroperitoneum: Atrophic pancreas. No retroperitoneal lymphadenopathy. Aorta and Major Vessels: Aortoiliac vessels are normal caliber containing mild calcified atherosclerotic plaque. Bowel, Mesentery and Peritoneal space: Normal caliber small and large bowel. Normal appendix. Mild distal colonic diverticulosis. There is no free air or fluid collection. Pelvis: Unremarkable. Abdominal wall and Osseous Structures: Multilevel lower thoracic and lumbar spondylosis, mild. No destructive osseous lesion. Small fat containing umbilical hernia. IMPRESSION: 1. Obstructing 9.6 x 5.3 mm calculus in the proximal to mid left ureter causing mild left hydroureteronephrosis. 2. Additional nonobstructing bilateral renal calculi. 3. Mild distal colonic diverticulosis. ATED BY: ANAMIKA MONTAGUE MD DICTATED DATE/TIME: 02/19/251626 SIGNED BY: ANAMIKA MONTAGUE MD SIGNED DATE/TIME: 02/19/251626 CC: Labs Test 02/20/25 06:35 02/20/25 05:51 02/19/25 19:40 02/19/25 13:54 Range/Units White Blood Count 7.5 4.4-10.8 10^3/uL Red Blood Count 4.70 4.0-5.20 10^6/uL Hemoglobin 13.4 12.2-16.2 g/dL Hematocrit 40.0 # 36.0-46.0 % Mean Corpuscular Volume 85.3 80.0-100.0 fL Mean Corpuscular Hemoglobin 28.6 28.0-32.0 pg Mean Corpuscular Hemoglobin Concent 33.6 32.0-36.0 g/dL Red Cell Distribution Width 13.8 11.8-14.3 % Platelet Count 295 140-450 10^3/uL Mean Platelet Volume 8.1 6.9-10.8 fL Neutrophils (%) (Auto) 65.8 37.0-80.0 % Lymphocytes (%) (Auto) 26.8 10.0-50.0 % Monocytes (%) (Auto) 5.7 0.0-12.0 % Eosinophils (%) (Auto) 1.3 0.0-7.0 % Basophils (%) (Auto) 0.4 0.0-2.0 % Neutrophils # (Auto) 4.9 1.6-8.6 10 ^3/uL Lymphocytes # (Auto) 2.0 0.4-5.4 10 ^3/uL Monocytes # (Auto) 0.4 0-1.3 10 ^3/uL Eosinophils # (Auto) 0.1 0-0.8 10 ^3/uL Basophils # (Auto) 0 0-0.2 10 ^3/uL Nucleated Red Blood Cells 0.0 % Sodium Level 142 136-145 mmol/L Potassium Level 3.7 3.5-5.1 mmol/L Chloride Level 106 98-107 mmol/L Carbon Dioxide Level 26 20-31 mmol/L Anion Gap 10 5-15 Blood Urea Nitrogen 15 9-23 mg/dL Creatinine 1.00 0.550-1.02 mg/dL Glomerular Filtration Rate Calc 62 >90 mL/min BUN/Creatinine Ratio 15.0 10.0-20.0 Serum Glucose 111 H 74-106 mg/dL Calcium Level 9.2 8.7-10.4 mg/dL Total Bilirubin 0.9 0.2-1.0 mg/dL Aspartate Amino Transferase (AST) 11 L 13-40 U/L Alanine Aminotransferase (ALT) 10 7-40 U/L Alkaline Phosphatase 68 46-116 U/L Total Protein 6.2 5.7-8.2 g/dL Albumin 4.1 3.2-4.8 g/dL POC Glucose 107 H 70-106 mg/dl Prothrombin Time 11.8 9.3-11.8 sec Prothrombin Time INR 1.13 0.9-1.15 Lactic Acid Level 1.5 0.4-2.0 mmol/L Troponin I High Sensitivity < 3 L </=34 ng/L Lipase 29 12-53 U/L Test 02/19/25 13:53 Range/Units Urine Color Light-orange Yellow Urine Clarity Ex.turbid Clear Urine pH 5.0 5.0-9.0 Urine Specific [place] 1.022 1.001-1.035 Urine Protein 2+ H Negative Urine Ketones Negative Negative Urine Blood 3+ H Negative /uL Urine Nitrite Negative Negative Urine Bilirubin Negative Negative Urine Urobilinogen Normal Negative mg/dL Urine Leukocyte Esterase Trace Negative /uL Urine RBC 1432 0 - 4 /hpf Urine WBC Clumps Present None Seen /hpf Urine Microscopic WBC 133 H 0-5 /HPF Urine Squamous Epithelial Cells Few <5 /hpf Urine Amorphous Crystals Few None Seen /hpf Urine Bacteria Few H None Seen /hpf Urine Mucus Few None Seen Urine Glucose Trace Normal mg/dL Microbiology Date/Time Source Procedure Growth Status 02/19/25 13:53 Voided Urine Urine Culture - Preliminary Resulted Assessment/Plan Problem List: (1) Left renal stone (2) Intractable abdominal pain (3) UTI (urinary tract infection) (4) Hydronephrosis with renal and ureteral calculous obstruction Plan patient has taken aspirin so we cannot proceed with ESWL for 5 days off of aspirin. we will obtain repeat CT given pt report of passing two moderately sized stones this morning and pain and voiding has improved. renal function is preserved no s/s of sepsis at this time continue with expulsive measures and pain control - flomax daily - IVPB mannitol for diuresis and decrease intrarenal pressure aggressive hydration encourage ambulation Plan discussed with: Patient, Other KAT ROGEL SPEED OPERATOR Feb 20, 2025 08:37
[2025-02-20] MEDS: cefTRIAXone 1GM/50ML D5W 50 ML IV SCH (09:11)
[2025-02-20] MEDS: TAMSULOSIN HYDROCHLORIDE 0.4 MG CAP PO SCH (09:12)
[2025-02-20] MEDS: ASPirin-EC 81 mg tab PO SCH (09:12)
[2025-02-20] MEDS: ONDANSETRON HCL 4 MG/2 ML VIAL IV PRN (10:25)
[2025-02-20] MEDS: MANNITOL FTV 25% 12.5 GM/50 ML 50 ML IV ONE (12:02)
--- NOTE | 2025-02-20 12:05 | DVH ---
CLINICAL INFORMATION: Recently passed renal stones. Reassess hydronephrosis. TECHNIQUE: Axial CT images of the abdomen and pelvis were obtained without IV contrast. Coronal and s agittal reformatted images were obtained, reviewed, and stored. Evaluation of the parenchymal organs is limited without IV contrast. Evaluation of the bowel and mesentery is limited without oral contras t. All CT scans at this medical facility are performed using dose modulation techniques as appropriat e to a performed exam including the following: Automated exposure control was utilized; adjustment of the MA and/or KV according to patient size; and use of iterative reconstruction technique. CTDIvol = 22.44 mGy DLP = 1358.76 mGy-cm COMPARISON: CT CT AB PEL WO CON-NO ORAL OR IV on DOS: 02/19/25, CT ABD PELVIS WO CONTRAST on DOS: FINDINGS: Lung bases: Atelectasis in the lung bases. Liver: Grossly unremarkable in its noncontrast enhanced appearance. No abnormal density or focal lesi on identified. Biliary: Cholecystectomy. Spleen: Unremarkable. Pancreas: Moderate atrophy. Adrenal glands: Unremarkable. No mass. Kidneys: Improved left hydronephrosis, with mild residual distention of the renal pelvis proximal ure ter. Previously seen left ureteral calculus is no longer visualized. No obstructing calculus visuali zed. Small bilateral nonobstructing calculi. Aorta/Vascular: Moderate atherosclerotic calcification. No abdominal aortic aneurysm. Retroperitoneum: No mass or lymphadenopathy. Bowel/mesentery: Nonspecific nondilated fluid-filled small bowel loops. No small bowel obstruction. A ppendix is visualized and appears unremarkable. Scattered colonic diverticula without adjacent infla mmatory changes to suggest diverticulitis. Pelvic organs: Grossly unremarkable. Bladder: Unremarkable. No mass. Abdominal wall: No mass or hernia. Bones: No acute fracture or suspicious intraosseous lesion. IMPRESSION: 1. Improved left hydronephrosis. Left ureteral calculus no longer visualized, consistent with clinica l history of passing of the calculus. No residual obstructing calculus. 2. Bilateral nonobstructing renal calculi.
--- NOTE | 2025-02-20 22:19 | DVHPN2 ---
Subjective The patient is seen and examined at bedside. Still complain of left flank pain Reviewed: Care Plan, H&P, Labs, Medications, Previous Orders, Radiology Changes from previous H/P or p: No Changes Objective Vitals Vital Signs Date Time Temp Pulse Resp B/P (MAP) Pulse Ox O2 Delivery O2 Flow Rate FiO2 02/20/25 21:36 75 16 115/59 02/20/25 16:54 98.0 100 98.0 02/20/25 08:00 Room Air* 0 21 Intake/Output Intake and Output 02/20/25 07:00 Intake Total 1000 ml Balance 1000 ml Intake Oral 0 ml IV Total 1000 ml # Voids 1 General Appearance: Alert, Oriented X3, Cooperative, No acute distress HEENT: Atraumatic, PERRLA, EOMI, Mucous membr. moist/pink Neck: Supple Lungs: Clear to auscultation, Normal air movement Cardiovascular: Regular rate, Normal S1, Normal S2, No murmurs, Gallops, Rubs Abdomen: Normal bowel sounds, Soft, No tenderness Genitourinary: Other (Positive Dockery sign on left flank) Neuro: Cranial nerves 3-12 NL Psych/Mental Status: Mental status NL Medications Current Medications Medications Dose Ordered Sig/Jabier Route Start Time Stop Time Status Last Admin Dose Admin Sodium Chloride 10 ml Q8HR IV 02/19/25 22:00 02/20/25 21:30 10 ML Docusate Sodium 100 mg BIDPRN PRN PO 02/19/25 18:45 Acetaminophen 650 mg Q6HP PRN PO 02/19/25 18:45 Acetaminophen/ Hydrocodone Bitart 1 tab Q4HP PRN PO 02/19/25 18:45 Hydromorphone HCl 0.5 mg Q4HP PRN IV 02/19/25 18:45 02/20/25 21:36 0.5 MG Levothyroxine Sodium 100 mcg QAM PO 02/20/25 07:00 Pravastatin Sodium 10 mg HS PO 02/19/25 22:00 02/20/25 21:30 10 MG Tamsulosin HCl 0.4 mg DAILY PO 02/20/25 10:00 02/20/25 09:12 0.4 MG Ceftriaxone Sodium 50 ml @ 100 mls/hr DAILY IV 02/20/25 10:00 02/20/25 09:11 100 MLS/HR Diagnostic Test (Pha) 1 strip ACHS 02/19/25 22:00 02/20/25 21:30 1 STRIP Insulin Human Regular ACHS SC 02/19/25 22:00 02/20/25 21:43 2 UNITS Dextrose 50 ml UD PRN IV 02/19/25 19:00 Ondansetron HCl 4 mg Q4HPRN PRN IV 02/20/25 10:15 02/20/25 10:25 4 MG Laboratory Results Laboratory Tests 02/20/25 06:35 Chemistry Test 02/20/25 06:35 Albumin 4.1 g/dL (3.2-4.8) Calcium Level 9.2 mg/dL (8.7-10.4) Total Protein 6.2 g/dL (5.7-8.2) LFT Test 02/20/25 06:35 Alanine Aminotransferase (ALT) 10 U/L (7-40) Alkaline Phosphatase 68 U/L (46-116) Aspartate Amino Transferase (AST) 11 U/L (13-40) L Total Bilirubin 0.9 mg/dL (0.2-1.0) Urinalysis Test 02/19/25 13:53 Urine Color Light-orange (Yellow) Urine Clarity Ex.turbid (Clear) Urine pH 5.0 (5.0-9.0) Urine Specific [place] 1.022 (1.001-1.035) Urine Protein 2+ (Negative) H Urine Ketones Negative (Negative) Urine Blood 3+ /uL (Negative) H Urine Nitrite Negative (Negative) Urine Bilirubin Negative (Negative) Urine Urobilinogen Normal mg/dL (Negative) Urine Leukocyte Esterase Trace /uL (Negative) Urine RBC 1432 /hpf (0 - 4) Urine WBC Clumps Present /hpf (None Seen) Urine Microscopic WBC 133 /HPF (0-5) H Urine Squamous Epithelial Cells Few /hpf (<5) Urine Amorphous Crystals Few /hpf (None Seen) Urine Bacteria Few /hpf (None Seen) H Urine Mucus Few (None Seen) Urine Glucose Trace mg/dL (Normal) Microbiology Microbiology Date/Time Source Procedure Growth Status 02/19/25 13:53 Voided Urine Urine Culture - Preliminary Resulted Labs and/or images reviewed: Labs reviewed by me Assessment/Plan Assessment/Plan Left obstructive uropathy with renal calculus 9 mm, no hydronephrosis Left hydronephrosis Plan Continuing current management with IV fluid. Continuing with pain medication. Continuing with Flomax. Continuing with IV antibiotic. Waiting for urologist to see the patient. This medical document was created using an electronic medical record system with [employer] direct computerized dictation system. Although this document has been carefully reviewed, there may still be some phonetic and typographical errors. These areas are purely typographical due to imperfections of the software programs, and do not reflect any compromise in the patient's medical care. Plan discussed with: Patient My Orders Orders - ESTEBAN HIGGINBOTHAM MD Procedure Category Date Status Time Ondansetron Hcl PHA 02/20/25 In Process (Zofran) 10:15 Consistent DIET 02/20/25 Transmitted Carb(Ccho)Diabetes Lunch Date of Service: Feb 20, 2025 Billing Provider: ESTEBAN HIGGINBOTHAM MD Common Visit Codes: [id number] INP/OBS CARE(HIGH) ESTEBAN HIGGINBOTHAM MD Feb 20, 2025 22:19
[2025-02-21 05:00] VITALS: BP 100/54; PULSE 72; RESP 19; TEMP 97.9; O2SAT 93
[2025-02-21 07:44] LABS: Basophils # (auto) 0 10 ^3/uL (0-0.2); Basophils % (auto) 0.6 % (0.0-2.0); Eosinophils # (auto) 0.2 10 ^3/uL (0-0.8); Eosinophils % (auto) 3.4 % (0.0-7.0); Hematocrit 40.3 % (36.0-46.0); Hemoglobin 13.5 g/dL (12.2-16.2); Lymphocytes # (auto) 2.1 10 ^3/uL (0.4-5.4); Lymphocytes % (auto) 36.6 % (10.0-50.0); Mean Corpuscular Hemoglobin 28.6 pg (28.0-32.0); Mean Corpuscular Hgb Conc. 33.5 g/dL (32.0-36.0); Mean Corpuscular Volume 85.4 fL (80.0-100.0); Monocytes # (auto) 0.3 10 ^3/uL (0-1.3); Monocytes % (auto) 6.1 % (0.0-12.0); Neutrophils % (auto) 53.3 % (37.0-80.0); Nucleated Red Blood Cells % 0.1 %; Platelet Count (auto) 287 10^3/uL (140-450); Red Blood Cells 4.72 10^6/uL (4.0-5.20); Red Cell Distribution Width 13.8 % (11.8-14.3); White Blood Cell 5.6 10^3/uL (4.4-10.8)
[2025-02-21 08:00] VITALS: PULSE 80; RESP 20; O2SAT 96
[2025-02-21 08:11] LABS: Alanine Aminotransferase 11 U/L (7-40); Alkaline Phosphatase 68 U/L (46-116); Anion Gap 11 (5-15); BUN/Creatinine Ratio 10.4 (10.0-20.0); Blood Urea Nitrogen 11 mg/dL (9-23); Calcium 9.3 mg/dL (8.7-10.4); Carbon Dioxide 27 mmol/L (20-31); Chloride 104 mmol/L (98-107); Potassium 4.3 mmol/L (3.5-5.1); Sodium 142 mmol/L (136-145); Total Protein 6.2 g/dL (5.7-8.2)
[2025-02-21 08:12] LABS: Bilirubin, Total 0.8 mg/dL (0.2-1.0)
[2025-02-21 08:15] LABS: Glucose 142 mg/dL (74-106)
[2025-02-21 08:16] LABS: Aspartate Aminotransferase 12 U/L (13-40)
[2025-02-21 09:52] VITALS: BP 112/64; PULSE 77; RESP 17; TEMP 97.4; O2SAT 95
--- NOTE | 2025-02-21 11:35 | DVHPN2 ---
Subjective The patient is seen and examined at bedside. Still complain of left flank pain Reviewed: Care Plan, H&P, Labs, Medications, Previous Orders, Radiology Objective Vitals Vital Signs Date Time Temp Pulse Resp B/P (MAP) Pulse Ox O2 Delivery O2 Flow Rate FiO2 02/21/25 09:52 97.4 77 17 112/64 (80) 95 97.4 02/21/25 08:00 Room Air* 0 21 Intake/Output Intake and Output 02/21/25 07:00 Intake Total 750 ml Balance 750 ml Intake Oral 700 ml IV Total 50 ml # Voids 3 General Appearance: Alert, Oriented X3, Cooperative, No acute distress HEENT: Atraumatic, PERRLA, EOMI, Mucous membr. moist/pink Neck: Supple Lungs: Clear to auscultation, Normal air movement Cardiovascular: Regular rate, Normal S1, Normal S2, No murmurs, Gallops, Rubs Abdomen: Normal bowel sounds, Soft, No tenderness Genitourinary: Other (Positive Dockery sign on left flank) Neuro: Cranial nerves 3-12 NL Psych/Mental Status: Mental status NL Medications Current Medications Medications Dose Ordered Sig/Jabier Route Start Time Stop Time Status Last Admin Dose Admin Sodium Chloride 10 ml Q8HR IV 02/19/25 22:00 02/21/25 06:37 10 ML Docusate Sodium 100 mg BIDPRN PRN PO 02/19/25 18:45 Acetaminophen 650 mg Q6HP PRN PO 02/19/25 18:45 Acetaminophen/ Hydrocodone Bitart 1 tab Q4HP PRN PO 02/19/25 18:45 Hydromorphone HCl 0.5 mg Q4HP PRN IV 02/19/25 18:45 02/20/25 21:36 0.5 MG Levothyroxine Sodium 100 mcg QAM PO 02/20/25 07:00 02/21/25 06:37 100 MCG Pravastatin Sodium 10 mg HS PO 02/19/25 22:00 02/20/25 21:30 10 MG Tamsulosin HCl 0.4 mg DAILY PO 02/20/25 10:00 02/21/25 09:37 0.4 MG Ceftriaxone Sodium 50 ml @ 100 mls/hr DAILY IV 02/20/25 10:00 02/21/25 09:37 100 MLS/HR Diagnostic Test (Pha) 1 strip ACHS 02/19/25 22:00 02/21/25 06:37 1 STRIP Insulin Human Regular ACHS SC 02/19/25 22:00 02/20/25 21:43 2 UNITS Dextrose 50 ml UD PRN IV 02/19/25 19:00 Ondansetron HCl 4 mg Q4HPRN PRN IV 02/20/25 10:15 02/20/25 10:25 4 MG Laboratory Results Laboratory Tests 02/21/25 07:08 Chemistry Test 02/21/25 07:08 Albumin 4.0 g/dL (3.2-4.8) Calcium Level 9.3 mg/dL (8.7-10.4) Total Protein 6.2 g/dL (5.7-8.2) LFT Test 02/21/25 07:08 Alanine Aminotransferase (ALT) 11 U/L (7-40) Alkaline Phosphatase 68 U/L (46-116) Aspartate Amino Transferase (AST) 12 U/L (13-40) L Total Bilirubin 0.8 mg/dL (0.2-1.0) Urinalysis Test 02/19/25 13:53 Urine Color Light-orange (Yellow) Urine Clarity Ex.turbid (Clear) Urine pH 5.0 (5.0-9.0) Urine Specific [place] 1.022 (1.001-1.035) Urine Protein 2+ (Negative) H Urine Ketones Negative (Negative) Urine Blood 3+ /uL (Negative) H Urine Nitrite Negative (Negative) Urine Bilirubin Negative (Negative) Urine Urobilinogen Normal mg/dL (Negative) Urine Leukocyte Esterase Trace /uL (Negative) Urine RBC 1432 /hpf (0 - 4) Urine WBC Clumps Present /hpf (None Seen) Urine Microscopic WBC 133 /HPF (0-5) H Urine Squamous Epithelial Cells Few /hpf (<5) Urine Amorphous Crystals Few /hpf (None Seen) Urine Bacteria Few /hpf (None Seen) H Urine Mucus Few (None Seen) Urine Glucose Trace mg/dL (Normal) Microbiology Microbiology Date/Time Source Procedure Growth Status 02/19/25 13:53 Voided Urine Urine Culture - Preliminary Resulted Assessment/Plan Assessment/Plan Left obstructive uropathy with renal calculus 9 mm, no hydronephrosis Left hydronephrosis Plan Continuing current management with IV fluid. Continuing with pain medication. Continuing with Flomax. Continuing with IV antibiotic. Waiting for urologist to see the patient. This medical document was created using an electronic medical record system with [employer] direct computerized dictation system. Although this document has been carefully reviewed, there may still be some phonetic and typographical errors. These areas are purely typographical due to imperfections of the software programs, and do not reflect any compromise in the patient's medical care. My Orders Orders - ESTEBAN HIGGINBOTHAM MD Procedure Category Date Status Time Consistent DIET 02/20/25 Transmitted Carb(Ccho)Diabetes Lunch ESTEBAN HIGGINBOTHAM MD Feb 21, 2025 11:35
[2025-02-21] MEDS ORDERED: TAMS-35 PO (12:34)
[2025-02-21] MEDS ORDERED: LEVO500T91 PO (12:34)
[2025-02-21] MEDS ORDERED: HYDR1TAB97 PO (12:36)
[2025-02-21] MEDS ORDERED: HYDR-4902 PO (12:38)
--- NOTE | 2025-02-21 12:42 | DVHDS2 ---
Discharge Summary Date of Admission Feb 19, 2025 at 18:40 Date of Discharge: Feb 21, 2025 Admitting Diagnosis Left obstructive uropathy with renal calculus 9 mm, no hydronephrosis Left hydronephrosis Labs/Diagnostic Data: Laboratory Results Test 02/21/25 11:21 02/21/25 07:08 02/19/25 19:40 02/19/25 13:54 POC Glucose 163 mg/dl (70-106) White Blood Count 5.6 10^3/uL (4.4-10.8) Red Blood Count 4.72 10^6/uL (4.0-5.20) Hemoglobin 13.5 g/dL (12.2-16.2) Hematocrit 40.3 % (36.0-46.0) Mean Corpuscular Volume 85.4 fL (80.0-100.0) Mean Corpuscular Hemoglobin 28.6 pg (28.0-32.0) Mean Corpuscular Hemoglobin Concent 33.5 g/dL (32.0-36.0) Red Cell Distribution Width 13.8 % (11.8-14.3) Platelet Count 287 10^3/uL (140-450) Mean Platelet Volume 8.0 fL (6.9-10.8) Neutrophils (%) (Auto) 53.3 % (37.0-80.0) Lymphocytes (%) (Auto) 36.6 % (10.0-50.0) Monocytes (%) (Auto) 6.1 % (0.0-12.0) Eosinophils (%) (Auto) 3.4 % (0.0-7.0) Basophils (%) (Auto) 0.6 % (0.0-2.0) Neutrophils # (Auto) 3.0 10 ^3/uL (1.6-8.6) Lymphocytes # (Auto) 2.1 10 ^3/uL (0.4-5.4) Monocytes # (Auto) 0.3 10 ^3/uL (0-1.3) Eosinophils # (Auto) 0.2 10 ^3/uL (0-0.8) Basophils # (Auto) 0 10 ^3/uL (0-0.2) Nucleated Red Blood Cells 0.1 % Sodium Level 142 mmol/L (136-145) Potassium Level 4.3 mmol/L (3.5-5.1) Chloride Level 104 mmol/L (98-107) Carbon Dioxide Level 27 mmol/L (20-31) Anion Gap 11 (5-15) Blood Urea Nitrogen 11 mg/dL (9-23) Creatinine 1.06 mg/dL (0.550-1.02) Glomerular Filtration Rate Calc 58 mL/min (>90) BUN/Creatinine Ratio 10.4 (10.0-20.0) Serum Glucose 142 mg/dL (74-106) Calcium Level 9.3 mg/dL (8.7-10.4) Total Bilirubin 0.8 mg/dL (0.2-1.0) Aspartate Amino Transferase (AST) 12 U/L (13-40) Alanine Aminotransferase (ALT) 11 U/L (7-40) Alkaline Phosphatase 68 U/L (46-116) Total Protein 6.2 g/dL (5.7-8.2) Albumin 4.0 g/dL (3.2-4.8) Prothrombin Time 11.8 sec (9.3-11.8) Prothrombin Time INR 1.13 (0.9-1.15) Lactic Acid Level 1.5 mmol/L (0.4-2.0) Troponin I High Sensitivity < 3 ng/L (</=34) Lipase 29 U/L (12-53) Test 02/19/25 13:53 Urine Color Light-orange (Yellow) Urine Clarity Ex.turbid (Clear) Urine pH 5.0 (5.0-9.0) Urine Specific [place] 1.022 (1.001-1.035) Urine Protein 2+ (Negative) Urine Ketones Negative (Negative) Urine Blood 3+ /uL (Negative) Urine Nitrite Negative (Negative) Urine Bilirubin Negative (Negative) Urine Urobilinogen Normal mg/dL (Negative) Urine Leukocyte Esterase Trace /uL (Negative) Urine RBC 1432 /hpf (0 - 4) Urine WBC Clumps Present /hpf (None Seen) Urine Microscopic WBC 133 /HPF (0-5) Urine Squamous Epithelial Cells Few /hpf (<5) Urine Amorphous Crystals Few /hpf (None Seen) Urine Bacteria Few /hpf (None Seen) Urine Mucus Few (None Seen) Urine Glucose Trace mg/dL (Normal) Other Laboratory Tests 02/21/25 07:08 Brief Hx & Hospital Course: This is 65 years old female come to emergency department because of left flank pain. The patient has history of kidney stones and had been passing small stools for two days. The patient had sharp stabbing pain on the left side. Patient was admitted. Workup was done. CT abdomen and. showed Obstructing 9.6 x 5.3 mm calculus in the proximal to mid left ureter causing mild left hydroureteronephrosis. Additional nonobstructing bilateral renal calculi. Mild distal colonic diverticulosis. The patient was put on Flomax and mannitol. Also was put on Rocephin to empirically treat you urinary tract infection. The patient passed some stone in the hospital. Urologist see the patient and recommend continuing with mannitol and Flomax. Follow up with Dr. Mauricio as outpatient for ESWL because the patient is on aspirin and she needs to stop aspirin five days prior to procedure. The repeat CT scan showed Improved left hydronephrosis. Left ureteral calculus no longer visualized, consistent with clinical history of passing of the calculus. No residual obstructing calculus. Bilateral nonobstructing renal calculi. So I am going to discharge her home today. Advised her to follow up with urologist as outpatient in 1-2 weeks. Follow up with primary care physician 1-2 weeks. Activity as tolerated. Diet per home diet. Physical exam HEENT: Normocephalic atraumatic pupils equal react to light and accommodation. Extraocular muscles intact, conjunctiva pink, oropharynx moist, no thrush, no exudate. Lymphatic: No lymphadenopathy Cardiovascular exam: S1, S2 was heard. No murmurs, rubs, gallops Lung: Clear on auscultation bilaterally, no wheeze, rale, rhonchi. GI: Abdominal soft, nondistended, nontenderness, positive bowel sounds. Extremity: No crepitus, cyanosis, edema. Pedal pulses present bilateral. Full range of motion. Skin: Normal turgor, no rash. Psych: Alert, oriented x3. Neurology: No focal deficits, cranial nerve II to XII grossly intact. This medical document was created using an electronic medical record system with [employer] direct computerized dictation system. Although this document has been carefully reviewed, there may still be some phonetic and typographical errors. These areas are purely typographical due to imperfections of the software programs, and do not reflect any compromise in the patient's medical care. Condition at Discharge: Stable Final Diagnosis/Problems List nephrolithiasis Left obstructive uropathy with renal calculus 9 mm, no hydronephrosis Left hydronephrosis Discharge Disposition: Home Discharge Instruct/Medications Diet: Regular Diet comment: low protein, low salt diet Activity: No Restrictions, As Tolerated Follow Up/Referral: pcp 1-2 weeks urology per schedule Medications: see med list Discharge Statement: "Patient was advised to return to the ER or call 911 if any headaches, dizziness, shortness of breath, chest pain, abdominal pain, bleeding, fevers, or worsening of medical condition. Patient was counseled about treatment plan, medications, possible side effects, patientverbalized understanding. All questions were answered to the best of my ability. This discharge took greater then 30 minutes in planning, reviewing documentation, counseling the patient, and discussing with other team members." ASSESSMENT ASSESSMENT Assessment nephrolithiasis Date of Service: Feb 21, 2025 Billing Provider: ESTEBAN HIGGINBOTHAM MD Common Visit Codes: 36897-BEO/OBS DISCH DAY >30min ESTEBAN HIGGINBOTHAM MD Feb 21, 2025 12:42
--- NOTE | 2025-02-21 12:42 | DVHPN2 ---
Consult Progress Note Objective vital signs Vital Sign Date Time Temp Pulse Resp B/P (MAP) Pulse Ox O2 Delivery O2 Flow Rate FiO2 02/21/25 09:52 97.4 77 17 112/64 (80) 95 97.4 02/21/25 08:00 Room Air* 0 21 Total Intake and Output 02/20/25 02/20/25 02/21/25 15:00 23:00 07:00 Intake Total 50 ml 700 ml 0 ml Balance 50 ml 700 ml 0 ml medications Current Medications Medications Dose Ordered Sig/Jabier Route Start Time Stop Time Status Last Admin Dose Admin Sodium Chloride 10 ml Q8HR IV 02/19/25 22:00 02/21/25 06:37 10 ML Docusate Sodium 100 mg BIDPRN PRN PO 02/19/25 18:45 Acetaminophen 650 mg Q6HP PRN PO 02/19/25 18:45 Acetaminophen/ Hydrocodone Bitart 1 tab Q4HP PRN PO 02/19/25 18:45 Hydromorphone HCl 0.5 mg Q4HP PRN IV 02/19/25 18:45 02/20/25 21:36 0.5 MG Levothyroxine Sodium 100 mcg QAM PO 02/20/25 07:00 02/21/25 06:37 100 MCG Pravastatin Sodium 10 mg HS PO 02/19/25 22:00 02/20/25 21:30 10 MG Tamsulosin HCl 0.4 mg DAILY PO 02/20/25 10:00 02/21/25 09:37 0.4 MG Ceftriaxone Sodium 50 ml @ 100 mls/hr DAILY IV 02/20/25 10:00 02/21/25 09:37 100 MLS/HR Diagnostic Test (Pha) 1 strip ACHS 02/19/25 22:00 02/21/25 11:37 1 STRIP Insulin Human Regular ACHS SC 02/19/25 22:00 02/21/25 11:38 3 UNITS Dextrose 50 ml UD PRN IV 02/19/25 19:00 Ondansetron HCl 4 mg Q4HPRN PRN IV 02/20/25 10:15 02/20/25 10:25 4 MG laboratory and microbiology Laboratory Tests 02/21/25 07:08 Test 02/21/25 07:08 Range/Units Serum Glucose 142 H 74-106 mg/dL Dietary Evaluation Review Recommendations by RD: Dietary education by RD Comments: 1) If patient remains NPO > 7 days, consider EN/TPN to meet at least 75% estimated daily needs 2) Advance to 60g CCCHO diet when medically feasible, pending [employer] approval 3) Provide education on the importance of adequate hydration and limiting excessive intake of sodium and protein to prevent future renal stones 4) Refer to outpatient RD for weight management 5) Follow-up with urology 6) Continue to monitor I&O, labs, and skin integrity Expected Outcomes/Goals: 1) patient to receive nutrition support within 7 days of NPO status 2) labs to improve 3) diet to advance 4) follow-up in 2-3 days ESTEBAN HIGGINBOTHAM MD Feb 21, 2025 12:42
[2025-02-21 13:00] VITALS: BP 110/75; PULSE 78; RESP 20; TEMP 97.9; O2SAT 97
== END 2025-02-21 14:15 | disposition home or self-care (01) | DRG 690 ==
LOC: ER 13:40 → OVERFLOW 18:40 → WEST WING 18:42
PROVIDERS: ADMIT Internal Medicine; ATTEND Internal Medicine
DX: N13.6 Pyonephrosis (principal); N20.2 Calculus of kidney with calculus of ureter; N30.00 Acute cystitis without hematuria; E11.9 Type 2 diabetes mellitus without complications; E03.9 Hypothyroidism, unspecified; E78.5 Hyperlipidemia, unspecified; Z90.49 Acquired absence of other specified parts of digestive tract; Z85.810 Personal history of malignant neoplasm of tongue; Z82.49 Family history of ischemic heart disease and other diseases of the circulatory system; Z80.8 Family history of malignant neoplasm of other organs or systems; Z80.0 Family history of malignant neoplasm of digestive organs; Z79.1 Long term (current) use of non-steroidal anti-inflammatories (NSAID); Z79.899 Other long term (current) drug therapy; Z79.82 Long term (current) use of aspirin; Z79.84 Long term (current) use of oral hypoglycemic drugs; Z79.4 Long term (current) use of insulin
CPT/HCPCS: 36415; 74176; 76775; 80053; 81001; 82962; 83605; 83690; 84484; 85025; 85610; 87086; 96365; 96375; 99291; G0378; J1815; J2405